=== PATIENT | male | born 1975 | race Two or more races ===

== ENCOUNTER 2019-02-14 07:01 | Emergency (ER) | payer OTHER ==
[~2019-02-14] VITALS: Ht 182.9 cm; Wt 76.7 kg
--- NOTE | 2019-02-14 07:10 | NUR ---
BIB78, HAD A SEIZURE, BS 92, PER PT HIS FRIEND SAID IT LASTED FOR 5MINS TAKES DEPAKOTE 100MG BID. AA/OX4, BREATHING EVEN AND UNLABORED, NO SOB NOTED, ATTACHED TO THE MONITOR, NEEDS ATTENDED, WILL MONITOR. DR. MORRISON AT BEDSIDE FOR EVAL.
--- NOTE | 2019-02-14 07:15 | NUR ---
PATIENT TOOK HIS OWN DILANTIN MEDICATION SCHEDULED, OK'D BY DR. MORRISON.
--- NOTE | 2019-02-14 08:15 | NUR ---
AA/OX4, NAD, VS STABLE, IV removed. Catheter intact and site benign. Pressure and 4x4 applied to site. No bleeding noted. Ambulatory with a steady gait. Patient discharged to home in stable condition. Written and verbal after care instructions given. Patient verbalizes understanding of instruction. TAP CARD PROVIDED.
[2019-02-14 08:17] VITALS: BP 142/94
== END 2019-02-14 08:17 | disposition home or self-care (01) ==
LOC: ER 07:19
DX: G40.909 Epilepsy, unspecified, not intractable, without status epilepticus (principal); Z98.890 Other specified postprocedural states